=== PATIENT | male | born 1955 | race Asian ===

== ENCOUNTER 2018-02-18 14:39 | Outpatient (CLI) | payer MEDICAID, OTHER ==
--- NOTE | 2018-02-18 16:04 | XRAY Report ---
Procedure Date: 02/18/2018 Accession Number: [id number] Procedure: XRN - Knee 3 View LT CPT Code: FULL RESULT: EXAM: Knee 3 View LT DATE: 02/18/2018 3:05 PM CLINICAL HISTORY: OTHER SPECIFIED ARTHRITIS, LEFT KNEE COMPARISON: None. TECHNIQUE: 3 views. FINDINGS: Bones: Normal. No fractures or bone lesions. Joints: Minimal degenerative changes mainly in the medial femoral tibial compartment. No joint effusion. Soft Tissues: Normal. No soft tissue swelling. IMPRESSION: Minimal degenerative changes as described. RADIA
== END 2018-02-18 14:40 | disposition home or self-care (01) ==
LOC: DI.N 14:39
PROVIDERS: ATTEND Internal Medicine
DX: M13.862 Other specified arthritis, left knee (principal)

== ENCOUNTER 2018-08-19 13:41 | Outpatient (CLI) | payer OTHER ==
--- NOTE | 2018-08-19 14:04 | XRAY Report ---
Reason: OTHER ASTHMA Procedure Date: 08/19/2018 Accession Number: [id number] / [id number] Procedure: XRN - Chest 2 View X-Ray CPT Code: 53856 FULL RESULT: EXAM: CHEST RADIOGRAPHY EXAM DATE: 08/19/2018 01:53 PM. CLINICAL HISTORY: OTHER ASTHMA. COMPARISON: None. TECHNIQUE: 2 views. FINDINGS: Lungs/Pleura: No focal airspace opacities. No pleural effusion or pneumothorax. Mediastinum: Cardiac silhouette is at the upper limits of normal for size. Mediastinal contour and pulmonary vasculature are within normal limits. Other: Multilevel degenerative changes are present in the thoracic spine. IMPRESSION: No acute cardiopulmonary abnormality. RADIA
== END 2018-08-19 13:42 | disposition home or self-care (01) ==
LOC: DI.N 13:41
PROVIDERS: ATTEND Internal Medicine
DX: J45.998 Other asthma (principal)
CPT/HCPCS: 71046

== ENCOUNTER 2020-04-14 22:35 | Outpatient (CLI) | payer OTHER | END 2020-04-14 22:36 | disposition critical access hospital (66) | LOC: EMS 22:35 | PROVIDERS: ATTEND Surgery | DX: R55 Syncope and collapse (principal) | CPT/HCPCS: A0425; A0427 ==

== ENCOUNTER 2020-04-14 22:51 | Emergency (ER) | payer OTHER ==
--- NOTE | 2020-04-15 00:03 | ED Physician Documentation ---
PD HPI SYNCOPE - Stated complaint Stated Complaint: NEAR SYNCOPE, PLUMMER - Chief complaint Chief Complaint: Neuro - History obtained from History obtained from: Patient, EMS - History of Present Illness Timing - onset: Enter time (22:00), Today Duration: Minutes Preceding symptoms: Nausea / vomiting (nausea, no vomiting), Light headed. No: Abdominal pain, Generalized weakness Associated symptoms: No: Chest pain, Dyspnea Similar symptoms before: Has not had sx before - Additional information Additional information: BIBA. Patient says that at approximately 10 PM tonight while brushing his teeth, he felt decreased sensation on the right side of his face which then spread to left side as well. Asked to describe the sensation further, he says he felt his face was swollen. This lasted less than 30 minutes and resolved completely. He also says he had lower extremity weakness; he says it was unilateral but cannot recall which side was affected; this has also completely resolved. He c/o mild generalized headache. Review of Systems Constitutional: denies: Fever, Chills, Fatigue, Sweats Eyes: denies: Loss of vision, Decreased vision, Photophobia Cardiac: reports: Reviewed and negative Respiratory: reports: Reviewed and negative GI: reports: Nausea. denies: Abdominal Pain, Vomiting : denies: Incontinent Musculoskeletal: reports: Reviewed and negative Neurologic: reports: Focal weakness, Numbness, Headache. denies: Generalized weakness, Near syncope, Syncope, Confused, Altered mental status PD PAST MEDICAL HISTORY - Past Medical History Past Medical History: Yes Cardiovascular: Hypertension Neuro: CVA - Present Medications Home Medications: Ambulatory Orders Medication Instructions Recorded Confirmed Aspirin Chewable [[facility] 04/14/20 04/14/20 Aspirin] Atorvastatin [Lipitor] 04/14/20 Celecoxib [Celebrex] 04/14/20 Clopidogrel [Plavix] 04/14/20 Hydrochlorothiazide 04/14/20 Lisinopril [Prinivil] 04/14/20 traMADol [Ultram] 04/14/20 - Allergies Allergies/Adverse Reactions: Allergies Allergy/AdvReac Type Severity Reaction Status Date / Time No Known Drug Allergies Allergy Verified 04/14/20 23:01 - Living Situation Living Arrangement: reports: At home PD ED PE NORMAL - Vitals Vital signs reviewed: Yes - General General: Alert and oriented X 3, No acute distress, Well developed/nourished - HEENT HEENT: PERRL, EOMI, Moist mucous membranes - Neck Neck: Supple, no meningeal sign - Cardiac Cardiac: RRR, No murmur, No gallop, No rub - Respiratory Respiratory: No respiratory distress, Clear bilaterally - Abdomen Abdomen: Soft, Non tender - Derm Derm: Normal color, Warm and dry - Extremities Extremities: No edema - Neuro Neuro: Alert and oriented X 3, follow up rep 2-12 intact, No motor deficit, No sensory deficit, Normal speech Eye Opening: Spontaneous Motor: Obeys Commands Verbal: Oriented GCS Score: 15 Results - Vitals Vitals: Vital Signs - 24 hr 04/14/20 04/14/20 04/15/20 22:58 23:15 00:41 Temperature 37.2 C Heart Rate 74 72 64 Respiratory 16 18 16 Rate Blood Pressure 122/76 113/84 H 108/67 O2 Saturation 99 96 99 04/15/20 04/15/20 04/15/20 02:30 03:23 04:01 Temperature 36.4 C L Heart Rate 56 L 59 L 59 L Respiratory 14 14 16 Rate Blood Pressure 115/71 106/10 L 119/70 O2 Saturation 99 99 97 Oxygen O2 Source Room air - EKG (time done) No standard instances Rate: Rate (enter#) (75) Rhythm: NSR [place]: Normal Intervals: Normal [place] QRS: Normal Ischemia: Normal ST segments Other comments: Other comments (PACs) - Labs Labs: Laboratory Tests 04/15/20 04/15/20 01:50 01:50 WBC 10.2 RBC 5.29 Hgb 12.0 L Hct 39.4 L MCV 74.5 L MCH 22.7 L MCHC 30.5 L RDW 13.7 Plt Count 252 MPV 10.1 Neut # (Auto) 7.9 H Lymph # (Auto) 1.5 Morgan # (Auto) 0.6 Eos # (Auto) 0.1 Baso # (Auto) 0.1 Absolute Nucleated RBC 0.00 Nucleated RBC % 0.0 Sodium 137 Potassium 4.1 Chloride 100 L Carbon Dioxide 24 Anion Gap 13.0 BUN 28 H Creatinine 1.1 Estimated GFR (MDRD) 68 L Glucose 111 H Calcium 9.5 Total Bilirubin 0.7 AST 24 ALT 28 Alkaline Phosphatase 67 Total Protein 8.1 Albumin 4.5 Globulin 3.6 Albumin/Globulin Ratio 1.3 Lipase 32 - Rads (name of study) CT head Radiology: Prelim report reviewed, See rad report PD MEDICAL DECISION MAKING - ED course Complexity details: reviewed results, re-evaluated patient, considered differential, d/w patient Departure - Departure Disposition: 01 Home, Self Care Clinical Impression: Facial paresthesia Condition: Good Instructions: ED Paraesthesias Discharge Date/Time: 04/15/20 04:02 NIHSS - Level of Consciousness Level of consciousness: (0) Alert, Keenly responsive LOC Questions: (0) Answers both Q's correct LOC Commands: (0) Performs both correctly - Gaze Best Gaze: (0) Normal - Visual Visual: (0) No loss - Facial Palsy Facial Palsy: (0) Normal, symmetrical movement - Motor Arms (both separate) Motor Arm (right): (0) No drift Motor Arm (left): (0) No drift - Motor Legs (both separate) Motor Leg (right): (0) No drift Motor Leg (left): (0) No drift - Limb Ataxia Limb Ataxia: (0) Absent - Sensory Sensory: (0) Normal - Best Language Best Language: (0) No aphasia - Dysarthria Dysarthria: (0) Normal - Extinction and Inattention (formally neg Extinction and inattention: (0) No abnormality - Total Score/Results Total Score/Result: 0
[2020-04-15 01:56] LABS: BASOPHILS # (AUTO) 0.1 10^3/uL (0.0-0.1); BASOPHILS % (AUTO) 0.8 %; EOSINOPHILS # (AUTO) 0.1 10^3/uL (0.0-0.7); EOSINOPHILS % (AUTO) 0.9 %; LYMPHOCYTES # (AUTO) 1.5 10^3/uL (1.5-3.5); LYMPHOCYTES % (AUTO) 14.6 %; MEAN CORPUSCULAR HEMOGLOBIN 22.7 pg (27.0-31.0); MEAN CORPUSCULAR HGB CONC 30.5 g/dL (32.0-36.0); MEAN CORPUSCULAR VOLUME 74.5 fL (80.0-94.0); MEAN PLATELET VOLUME 10.1 fL (7.4-11.4); MONOCYTES # (AUTO) 0.6 10^3/uL (0.0-1.0); MONOCYTES % (AUTO) 5.9 %; NEUTROPHILS # (AUTO) 7.9 10^3/uL (1.5-6.6); NEUTROPHILS % (AUTO) 77.4 %; PLT - PLATELET COUNT 252 10^3/uL (130-450); RED BLOOD COUNT 5.29 10^6/uL (4.70-6.10); RED CELL DISTRIBUTION WIDTH 13.7 % (12.0-15.0); WHITE BLOOD COUNT 10.2 x10^3/uL (4.8-10.8)
[2020-04-15 02:09] LABS: ALBUMIN 4.5 g/dL (3.2-5.5); ALBUMIN/GLOBULIN RATIO 1.3 (1.0-2.2); BILIRUBIN,TOTAL 0.7 mg/dL (0.2-1.0); CALCIUM 9.5 mg/dL (8.5-10.3); CREATININE 1.1 mg/dL (0.6-1.2); TOTAL PROTEIN 8.1 g/dL (6.7-8.2)
[2020-04-15 04:02] VITALS: BP 119/70
--- NOTE | 2020-04-15 13:24 | CT Report ---
PROCEDURE: HEAD WO INDICATIONS: numbness, weakness TECHNIQUE: Noncontrast 4.5 mm thick angled axial sections acquired from the foramen magnum to the vertex. For r adiation dose reduction, the following was used: automated exposure control, adjustment of mA and/or kV according to patient size. COMPARISON: None. FINDINGS: Image quality: Excellent. CSF spaces: Basal cisterns are patent. No extra-axial fluid collections. Ventricles are normal in size and shape. Brain: No midline shift. No intracranial masses or hemorrhage. Johnson-white matter interface is norm al. Scattered regions of subcortical and periventricular white matter hypoattenuation, likely sequel a of small vessel ischemic changes. Remote right basal ganglia/external capsule infarct. Extensive va scular calcification of the intracranial vertebral arteries and internal carotid arteries. Skull and face: Calvarium and visualized facial bones are intact, without suspicious lesions. Sinuses: Visualized sinuses and mastoids are clear. IMPRESSION: No acute intracranial abnormality. Findings consistent with small vessel ischemic changes. Remote right basal ganglia/external capsule infarct. Extensive arterial vascular calcification. No significant discrepancy between the preliminary and final reports. Reviewed by: Dalton Hayden on 04/15/2020 12:22 PM SP Approved by: Dalton Hayden on 04/15/2020 12:22 PM SP Station ID: [id number]
== END 2020-04-15 04:02 | disposition home or self-care (01) ==
LOC: EDUNIT# → ED 22:51
DX: R20.2 Paresthesia of skin (principal); I49.1 Atrial premature depolarization; I10 Essential (primary) hypertension; Z86.73 Personal history of transient ischemic attack (TIA), and cerebral infarction without residual deficits; Z79.02 Long term (current) use of antithrombotics/antiplatelets; Z79.82 Long term (current) use of aspirin
CPT/HCPCS: 36415; 70450; 80053; 83690; 85025; 93005; 99284

== ENCOUNTER → 2020-06-23 | Outpatient (CLI) | payer OTHER ==
[2020-06-23 12:52] LABS: BASOPHILS # (AUTO) 0.1 10^3/uL (0.0-0.1); BASOPHILS % (AUTO) 0.7 %; EOSINOPHILS # (AUTO) 0.2 10^3/uL (0.0-0.7); EOSINOPHILS % (AUTO) 2.2 %; HGB - HEMOGLOBIN 11.4 g/dL (14.0-18.0); LYMPHOCYTES # (AUTO) 1.8 10^3/uL (1.5-3.5); MEAN CORPUSCULAR HEMOGLOBIN 22.1 pg (27.0-31.0); MEAN CORPUSCULAR HGB CONC 29.2 g/dL (32.0-36.0); MEAN CORPUSCULAR VOLUME 75.8 fL (80.0-94.0); MEAN PLATELET VOLUME 10.5 fL (7.4-11.4); MONOCYTES # (AUTO) 0.5 10^3/uL (0.0-1.0); MONOCYTES % (AUTO) 7.3 %; NEUTROPHILS # (AUTO) 4.3 10^3/uL (1.5-6.6); NEUTROPHILS % (AUTO) 63.5 %; PLT - PLATELET COUNT 257 10^3/uL (130-450); RED BLOOD COUNT 5.16 10^6/uL (4.70-6.10); RED CELL DISTRIBUTION WIDTH 13.4 % (12.0-15.0); WHITE BLOOD COUNT 6.8 x10^3/uL (4.8-10.8)
[2020-06-23 13:21] LABS: ALBUMIN 4.6 g/dL (3.2-5.5); ALBUMIN/GLOBULIN RATIO 1.4 (1.0-2.2); ALKALINE PHOSPHATASE 55 IU/L (42-121); ALT ALANINE AMINOTRANSFERASE 23 IU/L (10-60); AST ASPARTATE AMINOTRANSFERASE 22 IU/L (10-42); BILIRUBIN,TOTAL 0.8 mg/dL (0.2-1.0); BUN - BLOOD UREA NITROGEN 19 mg/dL (6-20); CALCIUM 9.7 mg/dL (8.5-10.3); CARBON DIOXIDE - CO2 26 mmol/L (21-32); CHLORIDE 101 mmol/L (101-111); CHOL/HDL RATIO 3.3 (<5.0); CHOLESTEROL 187 mg/dL; CREATININE 0.9 mg/dL (0.6-1.2); GLUCOSE 104 mg/dL (70-100); HDL CHOLESTEROL 56 mg/dL; LDL CHOLESTEROL,CALCULATED 106 mg/dL; LDL/HDL RATIO 1.9 (<3.6); SODIUM 137 mmol/L (135-145); TOTAL PROTEIN 7.9 g/dL (6.7-8.2); VLDL CHOLESTEROL 25 mg/dL
== END ==
LOC: LAB.WCP 08:00
PROVIDERS: ATTEND Physician Assistant
DX: Z00.00 Encounter for general adult medical examination without abnormal findings (principal); I10 Essential (primary) hypertension; Z12.5 Encounter for screening for malignant neoplasm of prostate
CPT/HCPCS: 36415; 80053; 80061; 83721; 84153; 84443; 85025

== ENCOUNTER 2020-08-01 08:00 | Outpatient (CLI) | payer OTHER ==
[2020-08-01 19:02] LABS: HGB - HEMOGLOBIN 10.9 g/dL (14.0-18.0); MEAN CORPUSCULAR HEMOGLOBIN 22.6 pg (27.0-31.0); MEAN CORPUSCULAR HGB CONC 30.1 g/dL (32.0-36.0); MEAN CORPUSCULAR VOLUME 74.9 fL (80.0-94.0); MEAN PLATELET VOLUME 10.4 fL (7.4-11.4); RED BLOOD COUNT 4.83 10^6/uL (4.70-6.10); RED CELL DISTRIBUTION WIDTH 13.7 % (12.0-15.0); WHITE BLOOD COUNT 7.6 x10^3/uL (4.8-10.8)
[2020-08-01 19:28] LABS: URIC ACID 8.3 mg/dL (2.6-7.2)
[2020-08-01 19:39] LABS: CRP - C-REACTIVE PROTEIN < 1.0 mg/dL (0-1.0)
== END 2020-08-01 23:59 | disposition home or self-care (01) ==
LOC: LAB.WCP 08:00
PROVIDERS: ATTEND Family Medicine
DX: M10.9 Gout, unspecified (principal)
CPT/HCPCS: 36415; 84550; 85027; 85651; 86140

== ENCOUNTER 2020-08-01 15:19 | Outpatient (CLI) | payer OTHER ==
--- NOTE | 2020-08-01 16:39 | XRAY Report ---
PROCEDURE: Wrist 3 View RT INDICATIONS: GOUTY ARTHRITIS TECHNIQUE: 3 views of the wrist were acquired. COMPARISON: No comparison. Degenerative osteoarthritic change appears present at the radiocarpal tayler nt, and there is distortion of the distal ulna articular surface in a fashion that may represent sequ mckenzie of old trauma and degenerative osteoarthritis. Definite erosive changes of gout are not seen. The ulnar styloid process is slightly irregular but trauma also could explain this appearance. FINDINGS: Bones: No fractures or dislocations. No suspicious bony lesions. Scaphoid view: Not obtained. Soft tissues: No suspicious soft tissue calcifications. 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 No definite erosive arthri tis is found. Reviewed by: Angelo Rodriguez MD on 08/01/2020 4:38 PM [facility] Approved by: Angelo Rodriguez MD on 08/01/2020 4:38 PM [facility] Station ID: [id number]
== END 2020-08-01 15:20 | disposition home or self-care (01) ==
LOC: DI.WCP 15:19
PROVIDERS: ATTEND Family Medicine
DX: M10.00 Idiopathic gout, unspecified site (principal); M19.031 Primary osteoarthritis, right wrist

== ENCOUNTER 2021-09-07 08:56 | Outpatient (CLI) | payer OTHER ==
[2021-09-07 12:09] LABS: BASOPHILS # (AUTO) 0.1 10^3/uL (0.0-0.1); EOSINOPHILS # (AUTO) 0.1 10^3/uL (0.0-0.7); EOSINOPHILS % (AUTO) 2.1 %; HGB - HEMOGLOBIN 12.2 g/dL (14.0-18.0); LYMPHOCYTES # (AUTO) 1.4 10^3/uL (1.5-3.5); LYMPHOCYTES % (AUTO) 24.3 %; MEAN CORPUSCULAR HEMOGLOBIN 22.2 pg (27.0-31.0); MEAN CORPUSCULAR HGB CONC 29.8 g/dL (32.0-36.0); MEAN CORPUSCULAR VOLUME 74.7 fL (80.0-94.0); MEAN PLATELET VOLUME 11.4 fL (7.4-11.4); MONOCYTES # (AUTO) 0.5 10^3/uL (0.0-1.0); NEUTROPHILS # (AUTO) 3.8 10^3/uL (1.5-6.6); NEUTROPHILS % (AUTO) 64.4 %; PLT - PLATELET COUNT 234 10^3/uL (130-450); RED BLOOD COUNT 5.49 10^6/uL (4.70-6.10); RED CELL DISTRIBUTION WIDTH 13.8 % (12.0-15.0); WHITE BLOOD COUNT 5.9 x10^3/uL (4.8-10.8)
[2021-09-07 12:49] LABS: % IRON SATURATION 32 % (20-50); ALBUMIN 4.7 g/dL (3.2-5.5); ALBUMIN/GLOBULIN RATIO 1.4 (1.0-2.2); ALKALINE PHOSPHATASE 60 IU/L (42-121); ALT ALANINE AMINOTRANSFERASE 23 IU/L (10-60); AST ASPARTATE AMINOTRANSFERASE 22 IU/L (10-42); BUN - BLOOD UREA NITROGEN 13 mg/dL (6-20); CALCIUM 9.2 mg/dL (8.5-10.3); CARBON DIOXIDE - CO2 26 mmol/L (21-32); CHLORIDE 103 mmol/L (101-111); CHOL/HDL RATIO 2.9 (<5.0); CHOLESTEROL 180 mg/dL; CREATININE 0.8 mg/dL (0.6-1.2); GFR - MDRD 97 (>89); GLUCOSE 105 mg/dL (70-100); HDL CHOLESTEROL 62 mg/dL; IRON 113 ug/dL (45-182); LDL CHOLESTEROL,CALCULATED 100 mg/dL; LDL/HDL RATIO 1.6 (<3.6); SODIUM 141 mmol/L (135-145); TOTAL IRON BINDING CAPACITY 357 ug/dL (250-450); TRANSFERRIN 255 mg/dL (180-329); TRIGLYCERIDES 92 mg/dL; URIC ACID 7.8 mg/dL (2.6-7.2); VLDL CHOLESTEROL 18 mg/dL
[2021-09-07 12:57] LABS: THYROID STIMULATING HORMONE 0.82 uIU/mL (0.34-5.60)
[2021-09-07 13:08] LABS: ESTIMATED AVERAGE GLUCOSE 91 mg/dL (70-100); HEMOGLOBIN A1c% 4.8 % (4.27-6.07)
== END 2021-09-07 08:57 | disposition home or self-care (01) ==
LOC: LAB.N 08:56
PROVIDERS: ATTEND Physician Assistant
DX: D64.9 Anemia, unspecified (principal); Z13.1 Encounter for screening for diabetes mellitus; Z12.5 Encounter for screening for malignant neoplasm of prostate; Z13.29 Encounter for screening for other suspected endocrine disorder; M10.9 Gout, unspecified; Z13.220 Encounter for screening for lipoid disorders
CPT/HCPCS: 36415; 80053; 80061; 82607; 83036; 83540; 83721; 84153; 84443; 84466; 84550; 85025

== ENCOUNTER 2022-05-15 10:33 | Outpatient (CLI) | payer OTHER ==
[2022-05-15 13:25] LABS: PSA TOTAL 3.403 ng/mL (0.000-2.000)
[2022-05-15 13:53] LABS: PSA FREE 0.494 ng/mL (0.16-2.81)
== END 2022-05-15 10:34 | disposition home or self-care (01) ==
LOC: LAB.N 10:33
PROVIDERS: ATTEND Physician Assistant
DX: R97.20 Elevated prostate specific antigen [PSA] (principal)
CPT/HCPCS: 36415; 84153; 84154

== ENCOUNTER 2023-06-12 08:38 | Outpatient (CLI) | payer OTHER ==
[2023-06-12 12:12] LABS: BASOPHILS # (AUTO) 0.1 10^3/uL (0.0-0.1); BASOPHILS % (AUTO) 1.3 %; EOSINOPHILS # (AUTO) 0.3 10^3/uL (0.0-0.7); EOSINOPHILS % (AUTO) 4.7 %; HCT - HEMATOCRIT 43.1 % (42.0-52.0); HGB - HEMOGLOBIN 12.4 g/dL (14.0-18.0); LYMPHOCYTES # (AUTO) 1.1 10^3/uL (1.5-3.5); LYMPHOCYTES % (AUTO) 19.7 %; MEAN CORPUSCULAR HEMOGLOBIN 21.6 pg (27.0-31.0); MEAN CORPUSCULAR HGB CONC 28.8 g/dL (32.0-36.0); MEAN CORPUSCULAR VOLUME 75.1 fL (80.0-94.0); MEAN PLATELET VOLUME 10.7 fL (7.4-11.4); MONOCYTES # (AUTO) 0.5 10^3/uL (0.0-1.0); MONOCYTES % (AUTO) 8.6 %; NEUTROPHILS # (AUTO) 3.6 10^3/uL (1.5-6.6); NEUTROPHILS % (AUTO) 65.5 %; PLT - PLATELET COUNT 230 10^3/uL (130-450); RED BLOOD COUNT 5.74 10^6/uL (4.70-6.10); RED CELL DISTRIBUTION WIDTH 13.7 % (12.0-15.0); WHITE BLOOD COUNT 5.5 x10^3/uL (4.8-10.8)
[2023-06-12 12:18] LABS: SLIDE REVIEW? Indicated
[2023-06-12 12:37] LABS: THYROID STIMULATING HORMONE 0.9 uIU/mL (0.34-5.60)
[2023-06-12 12:40] LABS: PLATELET ESTIMATE, MANUAL NORMAL (130-450,000) (NORMAL); PLATELET MORPHOLOGY NORMAL APPEARANCE (NORMAL); WBC MORPHOLOGY (MULTIPLE) NORMAL APPEARANCE (NORMAL)
[2023-06-12 13:22] LABS: ALBUMIN 4.7 g/dL (3.2-5.5); ALBUMIN/GLOBULIN RATIO 1.7 (1.0-2.2); BILIRUBIN,TOTAL 0.6 mg/dL (0.2-1.0); CALCIUM 9.7 mg/dL (8.5-10.3); CREATININE 0.8 mg/dL (0.6-1.3); POTASSIUM 4.1 mmol/L (3.5-4.5); TOTAL PROTEIN 7.4 g/dL (6.4-8.9); URIC ACID 7.6 mg/dL (4.4-7.6)
[2023-06-12 21:02] LABS: FECAL OCCULT BLOOD (FIT) NEGATIVE (NEGATIVE)
== END 2023-06-12 08:39 | disposition home or self-care (01) ==
LOC: LAB.N 08:38
PROVIDERS: ATTEND Physician Assistant
DX: I10 Essential (primary) hypertension (principal); Z12.11 Encounter for screening for malignant neoplasm of colon; R97.20 Elevated prostate specific antigen [PSA]; M10.00 Idiopathic gout, unspecified site
CPT/HCPCS: 36415; 80053; 82274; 84153; 84443; 84550; 85025